=== PATIENT | female | born 1975 | race Caucasian/White ===

== ENCOUNTER 2020-07-07 00:28 | Emergency (ER) | payer SELFPAY ==
[~2020-07-07] VITALS: Ht 144.8 cm; Wt 74.8 kg
[2020-07-07 01:31] LABS: CLARITY URINE CLEAR (CLEAR); COLOR URINE YELLOW (YELLOW); KETONES URINE NEGATIVE (NEGATIVE); LEUKOCYTE ESTERASE URINE NEGATIVE (NEGATIVE); NITRITE URINE NEGATIVE (NEGATIVE); OCCULT BLOOD URINE TRACE (NEGATIVE); PROTEIN URINE NEGATIVE (NEGATIVE); SPECIFIC GRAVITY URINE 1.007 (1.005-1.030); UROBILINOGEN URINE 0.2 E.U./dL (0.2-1.0)
[2020-07-07] MEDS ORDERED: ACETAMINOPHEN 325MG TABLET PO STA (02:02)
[2020-07-07 02:32] LABS: BASOPHILS % 0.9 % (0.0-2.0); EOSINOPHILS % 1.2 % (0.0-5.0); HEMATOCRIT. 42.4 % (36.0-48.0); HEMOGLOBIN. 14.2 g/dL (12.0-16.0); LYMPHOCYTES % 40.2 % (20.0-50.0); MEAN CORPUSCULAR VOLUME 86.7 fL (81.0-99.0); MEAN PLATELET VOLUME 8.1 fl (7.4-10.4); MONOCYTES % 7.5 % (2.0-8.0); NEUTROPHILS % 50.2 % (40.0-76.0); PLATELET 312 x1000/uL (130-400); RED BLOOD CELL COUNT 4.89 mill/uL (4.2-5.4)
[2020-07-07 02:41] LABS: CHLORIDE 104 mEq/L (98-107)
[2020-07-07 02:42] LABS: HCG SCREEN NEGATIVE
[2020-07-07] MEDS ORDERED: FAMO-135 MT (03:30)
[2020-07-07 04:12] VITALS: BP 130/59
== END 2020-07-07 04:16 | disposition home or self-care (01) ==
LOC: ER 00:28
DX: R10.11 Right upper quadrant pain (principal); E78.00 Pure hypercholesterolemia, unspecified; Z90.49 Acquired absence of other specified parts of digestive tract
CPT/HCPCS: 36415; 76705; 76830; 76856; 80053; 81003; 81025; 84703; 85025; 99285